=== PATIENT | female | born 1985 | race Caucasian/White ===

== ENCOUNTER 2018-12-22 20:37 | Emergency (ER) | payer OTHER ==
[2018-12-22 21:02] VITALS: BP 99/71
[2018-12-22] MEDS ORDERED: KETOROLAC TROMETHAMINE INJ/PF 30 MG/1 ML SDV IV ONE (21:27)
[2018-12-22] MEDS ORDERED: METOCLOPRAMIDE HCL INJ/PF 10 MG/2 ML SDV IV ONE (21:27)
[2018-12-22] MEDS ORDERED: DIPHENHYDRAMINE HCL 50 MG/ML VIAL IV ONE (21:27)
[2018-12-22] MEDS ORDERED: NORMAL SALINE 1000 ML 1,000 ML IV ONE (21:28)
--- NOTE | 2018-12-22 21:31 | ER Document Report ---
ED Headache - General Chief Complaint: Headache Stated Complaint: HEADACHE,NAUSEA Time Seen by Provider: 12/22/18 21:17 Mode of Arrival: Ambulatory Information source: Patient TRAVEL OUTSIDE OF THE [place] IN LAST 30 DAYS: No - HPI Patient complains to provider of: Headache Notes: Patient is here with complaints of headache. The patient has a history of headaches. She has had a headache similar to this in the past. States that the headache started gradual 3 days ago. She was seen at [facility], she was given no medications and was given a prescription for ibuprofen for which she has been taking. She states that she woke up this morning feeling better, she was actually able to go out and do some shopping, and then when she got home her headache seemed to worsen. This was not a sudden onset, thunderclap headache. It was gradual. Is been constant and getting worse. She currently rates it moderate to severe. She denies head injury. She is not on blood thinning medications. She denies any fever or neck stiffness. She denies any unilateral numbness, tingling, weakness. No blurred or loss vision. No chest pain or shortness of breath. She has had nausea, but denies any vomiting or diarrhea. She denies abdominal pain. Lights and sounds make the headache worse, nothing seems to make it better. She denies any further complaints at this time. In reviewing her records, the patient had a head CT which was normal in the last several years. - Related Data Allergies/Adverse Reactions: No Known Drug Allergies Allergy (Mild, Verified 12/28/12 11:59) Past Medical History - Social History Smoking Status: Unknown if Ever Smoked Family History: Reviewed & Not Pertinent - Past Medical History Cardiac Medical History: Denies: Hx Coronary Artery Disease, Hx Heart Attack, Hx Hypertension Pulmonary Medical History: Denies: Hx Asthma, Hx Bronchitis, Hx COPD, Hx Pneumonia Neurological Medical History: Denies: Hx Cerebrovascular Accident, Hx Seizures Musculoskeletal Medical History: Denies Hx Arthritis Past Surgical History: Reports: Hx Hysterectomy - Immunizations Hx Diphtheria, Pertussis, Tetanus Vaccination: Yes Review of Systems - Review of Systems -: Yes All other systems reviewed and negative Physical Exam - Vital signs Vitals: Temp Pulse Resp BP Pulse Ox 98.6 F 77 16 99/71 L 97 12/22/18 21:01 12/22/18 21:01 12/22/18 21:01 12/22/18 21:01 12/22/18 21:01 - Notes Notes: GENERAL: alert, cooperative, nontoxic, no distress. HEAD: normocephalic, atraumatic EYES: conjunctiva pink without discharge, no external redness or swelling. Pupils are equal, round, reactive to light. EARS: no external swelling, no external redness NOSE: atraumatic, no external swelling MOUTH/THROAT: mucous membranes moist and pink, posterior pharynx without erythema, swelling, exudate. No trismus or drooling. NECK: soft, supple, full range of motion, no meningismus. CHEST: no distress, lungs clear and equal throughout. No wheezing, rales, rhonchi. CARDIAC: regular rate and rhythm, no murmur, normal capillary refill, normal pulses. No peripheral edema noted. BACK: full range of motion, no CVA tenderness. EXTREMITIES: full range of motion of all extremities. No redness, no swelling. NEURO: alert and oriented x 3, cranial nerves II through XII are grossly intact. Upper and lower extremities are equal throughout. Normal sensation. No focal deficits, full range of motion of all extremities. normal finger to nose. PYSCH: appropriate mood, affect. Patient is cooperative. SKIN: pink, warm, dry, no rash. Course - Re-evaluation Re-evalutation: 12/22/18 23:28 Reevaluation the patient at this time shows that her headache has resolved. She states that she is feeling significantly better at this time. Vitals are stab le. Patient arrived with complaints of a gradual headache which started a few days ago and progressively got worse today. She has had headaches similar to this in the past. She is not on blood thinning medications, she had no injury, no neck stiffness, no fever. There is no sign of subarachnoid hemorrhage, meningitis or other serious cause of headache. She has a nonfocal neurological exam. She responded well to her migraine cocktail and states that she is feeling significantly better and would like to be discharged home at this time. This point the patient can be discharged home with instructions to take wswg-cno-xuvicen medications as needed. Follow-up with her primary care doctor if she requires. Return the hospital for any worsening pain, severe headache, blurred or loss vision, numbness, tingling, weakness, neck stiffness, fever, persistent vomiting, or for any further concerns. The patient's emergency department workup and current diagnosis were explained to the patient and or family. Follow-up instructions were provided. Medications if prescribed were discussed. Instructions for when to return to the emergency department including specific worrisome symptoms were discussed with the patient and/or family. - Vital Signs Vital signs: Temp Pulse Resp BP Pulse Ox 98.6 F 77 16 99/71 L 97 12/22/18 21:12/22/18 21:12/22/18 21:12/22/18 21:12/22/18 21:01 Discharge - Discharge Clinical Impression: Headache Condition: Stable Disposition: HOME, SELF-CARE Instructions: Headache ([facility]) Additional Instructions: Take [id number] medications as needed for headache. Drink caffeine for headache. Follow-up with your doctor as needed. Return the hospital for worsening pain, fever, neck stiffness, blurred or loss vision, numbness, tingling, weakness, persistent vomiting, or for any further concerns. Referrals: [facility] [Provider Group] - Follow up as needed
== END 2018-12-22 23:45 | disposition home or self-care (01) ==
LOC: ER 20:37
DX: R51 Headache (principal); R11.0 Nausea; Z90.710 Acquired absence of both cervix and uterus
CPT/HCPCS: 99283; 96374; 96375; J1200; J1885; J2765; J7030

== ENCOUNTER 2019-02-07 13:32 | Emergency (ER) | payer OTHER ==
[2019-02-07] MEDS ORDERED: ALBUTEROL SULFATE HFA (90 MCG/PUFF) 8 GM MDI (1 MDI/ER DISP) IH ONE (15:34)
--- NOTE | 2019-02-07 15:39 | ER Document Report ---
HPI - HPI Time Seen by Provider: 02/07/19 14:52 Pain Level: 3 Notes: Patient is an otherwise healthy 33-year-old female presenting with 5-day history of cough, sore throat, wheezing, congestion, headache, bilateral ear pain and gagging so much after coughing that she vomits. She states that she has been unable to hold down any food due to this. - CONSTITUTIONAL Constitutional: DENIES: Fever, Chills - NEURO Neurology: REPORTS: Headache - REPRODUCTIVE Reproductive: DENIES: : Past Medical History - General Information source: Patient - Social History Smoking Status: Never Smoker Chew tobacco use (# tins/day): No Frequency of alcohol use: None Drug Abuse: None Family History: Reviewed & Not Pertinent Patient has suicidal ideation: No Patient has homicidal ideation: No - Medical History Medical History: Negative - Past Medical History Cardiac Medical History: Denies: Hx Coronary Artery Disease, Hx Heart Attack, Hx Hypertension Pulmonary Medical History: Denies: Hx Asthma, Hx Bronchitis, Hx COPD, Hx Pneumonia Neurological Medical History: Denies: Hx Cerebrovascular Accident, Hx Seizures Renal/ Medical History: Denies: Hx Peritoneal Dialysis Musculoskeletal Medical History: Denies Hx Arthritis Past Surgical History: Reports: Hx Section - x2, Hx Cholecystectomy, Hx Hysterectomy, Hx Orthopedic Surgery - ACL to R leg - Immunizations Hx Diphtheria, Pertussis, Tetanus Vaccination: Yes Vertical Provider Document - CONSTITUTIONAL Notes: PHYSICAL EXAMINATION: GENERAL: Well-appearing, well-nourished and in no acute distress. HEAD: Atraumatic, normocephalic. EYES: Pupils equal round extraocular movements intact, conjunctiva are normal. ENT: Nares with clear rhinorrhea, bilateral TMs full, nonerythematous. Tenderness to palpation over frontal and maxillary sinuses. NECK: Normal range of motion LUNGS: No respiratory distress, lung sounds clear and equal bilaterally. Bronchospasm with deep breaths. Musculoskeletal: Normal range of motion NEUROLOGICAL: Normal speech, normal gait. PSYCH: Normal mood, normal affect. SKIN: Warm, Dry, normal turgor, no rashes or lesions noted. - INFECTION CONTROL TRAVEL OUTSIDE OF THE [place] IN LAST 30 DAYS: No COUNTRY TRAVELED TO/FROM: [facility] Course - Re-evaluation Re-evalutation: Patient's physical examination is consistent with bronchitis and sinusitis. Patient's vital signs are within normal limits, no tachycardia, hypoxia or hypotension. Patient will be safe to discharge home on outpatient oral medications. Patient encouraged to follow-up with primary care provider if not improving over the next 3 to 5 days. Patient verbalizes understanding and agreement with same. - Vital Signs Vital signs: Temp Pulse Resp BP Pulse Ox 98.1 F 89 18 106/58 L 100 02/07/19 13:49 02/07/19 13:49 02/07/19 13:49 02/07/19 13:49 02/07/19 13:49 Discharge - Discharge Clinical Impression: Bronchitis Sinusitis Qualifiers: Sinusitis location: maxillary Chronicity: acute Recurrence: non-recurrent Qualified Code(s): J01.00 - Acute maxillary sinusitis, unspecified Condition: Stable Disposition: HOME, SELF-CARE Additional Instructions: Sinusitis You have sinusitis, an infection of the sinus cavities of the face. The sinuses are air-filled chambers which open into the inside of the nose. Bacteria and pus fill a sinus, causing pain, drainage, and fever. Sinusitis is treated with antibiotics. Often, expectorants (to thin the sinus mucous) or decongestants (to reduce swelling) are prescribed as well. Healing requires seven to 10 days. Avoid chemical fumes, pollens, dusts, and smoke (especially cigarette smoke). Keep the air humidified in your bedroom and work area and take plenty of liquids by mouth. This condition can be serious if the infection spreads. If your symptoms worsen, or if you develop severe headache, high fever, stiff neck, or a rash, you must call the doctor or return for re-evaluation. Bronchitis with Bronchospasm (Wheezing) You have bronchitis with bronchospasm (wheezing). Sometimes people develop wheezing with a chest cold. This occurs either because of an underlying tendency toward asthma or because the virus itself irritates the bronchial tubes. This irritation causes cough, shortness of breath, and wheezing. Emergency treatment of bronchospasm may include adrenaline shots or bronchodilator aerosol. You may feel lightheaded and have a rapid pulse for an hour or two. Rest and get plenty of fluids. At home, we'll treat you with a bronchodilator inhaler. Corticosteroids may be required for some patients. Until you recover, avoid chemical fumes, dusts, pollens, and exercising in very cold or dry air. If you smoke, stop now! Most cases of bronchitis get better without antibiotics. We prescribe antibiotics when we believe bacteria are damaging your airways, or if there's high risk the bronchitis will worsen into pneumonia. Increase your fluid intake. A cool mist humidifier may make your lungs more comfortable. An expectorant (cough medicine that loosens phlegm) can help. Repeated episodes of bronchitis and bronchospasm may result in lung damage -- for example, chronic bronchitis, recurrent pneumonias, or emphysema. If you develop a fever, increased wheezing, chest pain, or severe shortness of breath, you should contact the doctor immediately. Prescriptions: Benzonatate [Tessalon Perles 100 mg Capsule] 100 mg PO Q8HP PRN #20 capsule PRN Reason: Doxycycline Hyclate 100 mg PO BID #10 capsule Prednisone [Deltasone 20 mg Tablet] 3 tab PO DAILY 5 Days #15 tablet Referrals: MIGUEL COPPOLA PA-C [Primary Care Provider] - Follow up as needed
[2019-02-07 15:48] VITALS: BP 113/71
== END 2019-02-07 15:51 | disposition home or self-care (01) ==
LOC: ER 13:32
DX: J40 Bronchitis, not specified as acute or chronic (principal); J01.00 Acute maxillary sinusitis, unspecified; R05 Cough; J02.9 Acute pharyngitis, unspecified; R06.2 Wheezing; R09.81 Nasal congestion; R51 Headache; H92.03 Otalgia, bilateral; R11.10 Vomiting, unspecified
CPT/HCPCS: 99283; 87070; 87880; J3490

== ENCOUNTER 2019-07-20 14:32 | Emergency (ER) | payer OTHER ==
--- NOTE | 2019-07-20 15:18 | ER Document Report ---
ED Medical Screen (RME) - General Chief Complaint: Abdominal Pain Stated Complaint: ABDOMINAL/BACK PAIN Time Seen by Provider: 07/20/19 15:15 Primary Care Provider: MIGUEL COPPOLA PA-C [Primary Care Provider] - Follow up as needed Mode of Arrival: Ambulatory Notes: 33-year-old female presented to ED for complaint of low back pain 2 days ago and now she has severe abdomen and back pain. She states it feels the same as when her gallbladder ruptured. She states she has had nausea but no vomiting. She states she does not smoke drink or do any drugs. She states she has had diarrhea for the last 2 to 3 days. She states that her last formed stool was about a week ago. I have greeted and performed a rapid initial assessment of this patient. A comprehensive ED assessment and evaluation of the patient, analysis of test results and completion of medical decision making process will be conducted by an additional ED providers. I have greeted and performed a rapid initial assessment of this patient. A comprehensive ED assessment and evaluation of the patient, analysis of test results and completion of medical decision making process will be conducted by an additional ED providers. TRAVEL OUTSIDE OF THE [place] IN LAST 30 DAYS: No COUNTRY TRAVELED TO/FROM: [facility] - Related Data Allergies/Adverse Reactions: No Known Drug Allergies Allergy (Mild, Verified 02/07/19 13:44) Past Medical History - Past Medical History Cardiac Medical History: Denies: Hx Coronary Artery Disease, Hx Heart Attack, Hx Hypertension Pulmonary Medical History: Denies: Hx Asthma, Hx Bronchitis, Hx COPD, Hx Pneumonia Neurological Medical History: Denies: Hx Cerebrovascular Accident, Hx Seizures Renal/ Medical History: Denies: Hx Peritoneal Dialysis Musculoskeltal Medical History: Denies Hx Arthritis Past Surgical History: Reports: Hx Section - x2, Hx Cholecystectomy, Hx Hysterectomy, Hx Orthopedic Surgery - ACL to R leg - Immunizations Hx Diphtheria, Pertussis, Tetanus Vaccination: Yes Physical Exam - Vital signs Vitals: Temp Pulse Resp BP Pulse Ox 99 F 116 H 16 132/84 H 98 07/20/19 15:10 07/20/19 15:10 07/20/19 15:10 07/20/19 15:10 07/20/19 15:10 Course - Vital Signs Vital signs: Temp Pulse Resp BP Pulse Ox 99 F 116 H 16 132/84 H 98 07/20/19 15:10 07/20/19 15:10 07/20/19 15:10 07/20/19 15:10 07/20/19 15:10 Doctor's Discharge - Discharge Referrals: MIGUEL COPPOLA PA-C [Primary Care Provider] - Follow up as needed
[2019-07-20 15:52] LABS: ABSOLUTE BASOPHILS # (AUTO) 0.1 10^3/uL (0.0-0.2); ABSOLUTE LYMPHOCYTES (AUTO) 1.7 10^3/uL (0.5-4.7); ABSOLUTE MONOCYTES (AUTO) 0.7 10^3/uL (0.1-1.4); ABSOLUTE NEUT (AUTO) 12.3 10^3/uL (1.7-8.2); BASOPHILS % (AUTO) 0.7 % (0-2); EOSINOPHILS % (AUTO) 0.1 % (0-6); HEMOGLOBIN 13.5 g/dL (12.0-15.5); LYMPHOCYTES % (AUTO) 11.3 % (13-45); MEAN CORPUSCULAR HEMOGLOBIN 29.4 pg (27.0-33.4); MEAN CORPUSCULAR HGB CONC 34.7 g/dL (32.0-36.0); MEAN CORPUSCULAR VOLUME 85 fl (80-97); MONOCYTES % (AUTO) 4.9 % (3-13); PLATELET COUNT 265 10^3/uL (150-450); RED BLOOD COUNT 4.61 10^6/uL (3.72-5.28); RED CELL DISTRIBUTION WIDTH 13.2 % (11.5-14.0); TOTAL CELLS COUNTED % (AUTO) 100 %; WHITE BLOOD COUNT 14.8 10^3/uL (4.0-10.5)
[2019-07-20 15:54] LABS: APPEARANCE,URINE SLIGHTLY-CLOUDY; BILIRUBIN,URINE NEGATIVE (NEGATIVE); COLOR,URINE YELLOW; GLUCOSE, URINE NEGATIVE (NEGATIVE); KETONES,URINE NEGATIVE (NEGATIVE); PROTEIN,URINE NEGATIVE (NEGATIVE); URINE SPECIFIC GRAVITY 1.011; UROBILINOGEN,URINE NEGATIVE mg/dL (<2.0)
--- NOTE | 2019-07-20 16:07 | RADIOLOGY REPORT (SQ) ---
EXAM DESCRIPTION: ACUTE ABDOMEN SERIES COMPLETED DATE/TIME: 07/20/2019 3:48 pm REASON FOR STUDY: Watery stools and severe abdomen back pain COMPARISON: None. NUMBER OF VIEWS: Three views. TECHNIQUE: Frontal chest, supine abdomen and upright/decubitus abdomen radiographic images acquired. LIMITATIONS: None. FINDINGS: CHEST: Lungs clear of infiltrates. FREE AIR: None. No abnormal gas collections. BOWEL GAS PATTERN: Nonobstructive pattern. Moderate stool in the transverse colon. CALCIFICATIONS: No suspicious calcifications. HARDWARE: None in the abdomen. SOFT TISSUES: No gross mass or suggestion of organomegaly. BONES: No acute fracture. No worrisome bone lesions. OTHER: No other significant finding. IMPRESSION: NO RADIOGRAPHIC EVIDENCE FOR ACUTE ABDOMINAL DISEASE. TECHNICAL DOCUMENTATION: JOB ID: [id number] [employer]- All Rights Reserved Reading location - IP/workstation name: [email or web address]
[2019-07-20 16:16] LABS: ALBUMIN 4.6 g/dL (3.5-5.0); ALKALINE PHOSPHATASE 105 U/L (38-126); ANION GAP 13 (5-19); ASPARTATE AMINO TRANSFERASE 33 U/L (14-36); BILIRUBIN,DIRECT 0.2 mg/dL (0.0-0.4); BILIRUBIN,TOTAL 0.6 mg/dL (0.2-1.3); BLOOD UREA NITROGEN 8 mg/dL (7-20); CARBON DIOXIDE 23 mmol/L (22-30); CHLORIDE 105 mmol/L (98-107); GLUCOSE 95 mg/dL (75-110); POTASSIUM 3.9 mmol/L (3.6-5.0); TOTAL PROTEIN 7.9 g/dL (6.3-8.2)
[2019-07-20] MEDS ORDERED: ACETAMINOPHEN 325 MG TABLET PO ONE (18:07)
[2019-07-20] MEDS ORDERED: ONDANSETRON HCL INJ/PF 4 MG/2 ML SDV IV ONE (18:07)
[2019-07-20] MEDS ORDERED: NORMAL SALINE 1000 ML 1,000 ML IV ONE (18:08)
[2019-07-20] MEDS ORDERED: MORPHINE SULFATE 10 MG/ML INJ IV ONE (18:09)
--- NOTE | 2019-07-20 19:38 | ER Document Report ---
ED GI/ - General Chief Complaint: Abdominal Pain Stated Complaint: ABDOMINAL/BACK PAIN Time Seen by Provider: 07/20/19 15:15 Primary Care Provider: MIGUEL COPPOLA PA-C [Primary Care Provider] - Follow up as needed Mode of Arrival: Ambulatory Information source: Patient Notes: Ms. Hogan is a 33 yo F w/ PMH of both thyroidism presenting to the emergency department for abdominal pain. Patient states that it initially began as her old lower back pain 1 to 2 days ago and just today it turned into diffuse abdominal pain. She endorses nausea without any episodes of vomiting. She denies any chest pain or shortness of breath. She endorses subjective fevers and chills. She states she has had multiple episodes of diarrhea however that is not uncommon for her. She has had previous surgeries of 2 sections as well as one laparoscopic hysterectomy. Patient denies any previous history of colonoscopy. She denies any known ill contacts or recent travel. She has had decreased p.o. intake over the past 2 days. She denies any increase in urinary frequency or dysuria. TRAVEL OUTSIDE OF THE [place] IN LAST 30 DAYS: No COUNTRY TRAVELED TO/FROM: [facility] - Related Data Allergies/Adverse Reactions: No Known Drug Allergies Allergy (Mild, Verified 07/20/19 15:16) Home Medications: lexapro. synthroid Past Medical History - General Information source: Patient - Social History Smoking Status: Never Smoker Chew tobacco use (# tins/day): No Frequency of alcohol use: None Drug Abuse: None Family History: Reviewed & Not Pertinent Patient has suicidal ideation: No Patient has homicidal ideation: No - Past Medical History Cardiac Medical History: Denies: Hx Coronary Artery Disease, Hx Heart Attack, Hx Hypertension Pulmonary Medical History: Denies: Hx Asthma, Hx Bronchitis, Hx COPD, Hx Pneumonia Neurological Medical History: Denies: Hx Cerebrovascular Accident, Hx Seizures Renal/ Medical History: Denies: Hx Peritoneal Dialysis Musculoskeletal Medical History: Denies Hx Arthritis Past Surgical History: Reports: Hx Section - x2, Hx Cholecystectomy, Hx Hysterectomy, Hx Orthopedic Surgery - ACL to R leg - Immunizations Hx Diphtheria, Pertussis, Tetanus Vaccination: Yes Review of Systems - Review of Systems Constitutional: See HPI EENT: No symptoms reported Cardiovascular: No symptoms reported Respiratory: No symptoms reported Gastrointestinal: See HPI, Abdominal pain, Diarrhea, Nausea, Poor appetite Genitourinary: No symptoms reported Female Genitourinary: No symptoms reported Musculoskeletal: No symptoms reported Skin: No symptoms reported Hematologic/Lymphatic: No symptoms reported Neurological/Psychological: No symptoms reported Physical Exam - Vital signs Vitals: Temp Pulse Resp BP Pulse Ox 99 F 116 H 16 132/84 H 98 07/20/19 15:10 07/20/19 15:10 07/20/19 15:10 07/20/19 15:10 07/20/19 15:10 Interpretation: Normal, Tachycardic, Other - Low-grade temp orally - General General appearance: Alert, Other - Ill-appearing but nontoxic - HEENT Head: Normocephalic, Atraumatic Eyes: Normal Pupils: PERRL - Respiratory Respiratory status: No respiratory distress Chest status: Nontender Breath sounds: Normal Chest palpation: Normal - Cardiovascular Rhythm: Regular Heart sounds: Normal auscultation Murmur: No - Abdominal Inspection: Normal Distension: No distension Bowel sounds: Normal Tenderness: Tender - Diffuse, Guarding. No: Rebound Organomegaly: No organomegaly - Back Back: Normal, Tender. No: Deformity/step-off, CVA tenderness, Vertebra tenderness - Bilateral lumbar paraspinous tenderness to palpation. - Extremities General upper extremity: Normal inspection, Nontender, Normal color, Normal ROM, Normal temperature General lower extremity: Normal inspection, Nontender, Normal color, Normal ROM, Normal temperature, Normal weight bearing. No: Darin's sign - Neurological Neuro grossly intact: Yes Cognition: Normal Orientation: AAOx4 Heidrick Coma Scale Eye Opening: Spontaneous Heidrick Coma Scale Verbal: Oriented Mynor Coma Scale Motor: Obeys Commands Mynor Coma Scale Total: 15 Speech: Normal Motor strength normal: LUE, RUE, LLE, RLE Sensory: Normal - Psychological Associated symptoms: Normal affect, Normal mood - Skin Skin Temperature: Warm Skin Moisture: Dry Skin Color: Normal Course - Re-evaluation Re-evalutation: Patient is ill-appearing and uncomfortable however nontoxic. Initial vitals notable for tachycardia. Likely because the patient has a low-grade temp. Patient ordered for Tylenol as well as IV fluids, Zofran and morphine for pain control. Differential diagnosis includes diverticulitis, SBO (less likely), cholecystitis, pancreatitis. 07/20/19 19:44 Labs notable for leukocytosis left shift. CMP and lipase within normal limits. UA of negative for infection. There was a abdominal series ordered from triage which is otherwise unremarkable. However given the guarding that the patient was having clinical examination, CT abdomen pelvis was obtained. 07/20/19 21:[address] is otherwise unremarkable. Patient felt improved after Zofran and morphine. Will administer 30 mg of Toradol prior to discharge. Likely muscular strain of the back which causes referred pain to the anterior abdomen. Abdomen is improved without any guarding at this point in time. Patient given return precautions. - Vital Signs Vital signs: Temp Pulse Resp BP Pulse Ox 99 F 116 H 16 132/84 H 98 07/20/19 15:10 07/20/19 15:10 07/20/19 15:10 07/20/19 15:10 07/20/19 15:10 - Laboratory Result Diagrams: 07/20/19 15:27 07/20/19 15:27 Laboratory results interpreted by me: 07/20/19 07/20/19 15:27 15:27 WBC 14.8 H Lymph % (Auto) 11.3 L Absolute Neuts (auto) 12.3 H Seg Neutrophils % 83.0 H Urine Blood MODERATE H Leukocyte Esterase Rfl TRACE H Discharge - Discharge Clinical Impression: Low back strain Qualifiers: Encounter type: initial encounter Qualified Code(s): S39.012A - Strain of muscle, fascia and tendon of lower back, initial encounter Back pain Qualifiers: Back pain location: low back pain Chronicity: acute Back pain laterality: bilateral Sciatica presence: without sciatica Qualified Code(s): M54.5 - Low back pain Abdominal pain Qualifiers: Abdominal location: generalized Qualified Code(s): R10.84 - Generalized abdomin al pain Condition: Good Disposition: HOME, SELF-CARE Instructions: Abdominal Pain ([facility]), Stretching Exercises for the Back ([facility]), Low Back Pain ([facility]) Additional Instructions: Recommend that you apply at least 30 minutes of heat 3-4 times a day in addition to 800 mg of ibuprofen every 8 hours. I would also recommend that you try a bland diet for the next 2 to 3 days to help with the abdominal pain. Follow-up with your primary care doctor as needed. If your pain worsens, you are unable to keep down food or drink, develop a fever, or any other concerning symptoms, return to the ED for further evaluation. Referrals: MIGUEL COPPOLA PA-C [Primary Care Provider] - Follow up as needed
--- NOTE | 2019-07-20 19:45 | RADIOLOGY REPORT (SQ) ---
EXAM DESCRIPTION: CT ABD/PELVIS WITH IV ONLY COMPLETED DATE/TIME: 07/20/2019 7:07 pm REASON FOR STUDY: abd pain, guarding, low grade fever COMPARISON: None. TECHNIQUE: CT scan of the abdomen and pelvis performed using helical scanning technique with dynamic intravenous contrast injection. No oral contrast. Images reviewed with lung, soft tissue, and bone windows. Reconstructed coronal and sagittal MPR images reviewed. Delayed images for evaluation of the urinary system also acquired. All images stored on PACS. All CT scanners at this facility use dose modulation, iterative reconstruction, and/or weight based d osing when appropriate to reduce radiation dose to as low as reasonably achievable (ALARA). [facility]: Dose Right [facility]: CareDose [facility]: Dose Right [facility]: Teradose 4D [facility]: [employer] CONTRAST TYPE AND DOSE: contrast/concentration: Isovue 350.00 mg/ml; Total Contrast Delivered: 100.0 ml; Total Saline Delivered: 72.0 ml 100 mL Isovue 350- low osmolar. RENAL FUNCTION: BUN 8, creatinine 0.77 RADIATION DOSE: CT Rad equipment meets quality standard of care and radiation dose reduction techniq ues were employed. CTDIvol: 15.7 - 19.8 mGy. DLP: 2105 mGy-cm.. LIMITATIONS: None. FINDINGS: LOWER CHEST: No significant findings. No nodules or infiltrates. LIVER: Normal size. No masses. No dilated ducts. SPLEEN: Normal size. No focal lesions. PANCREAS: No masses. No significant calcifications. No adjacent inflammation or peripancreatic fluid collections. Pancreatic duct not dilated. GALLBLADDER: No identified stones by CT criteria. No inflammatory changes to suggest cholecystitis. ADRENAL GLANDS: No significant masses or asymmetry. RIGHT KIDNEY AND URETER: No solid masses. No significant calcifications. No hydronephrosis or hyd roureter. LEFT KIDNEY AND URETER: No solid masses. No significant calcifications. No hydronephrosis or hydr oureter. AORTA AND VESSELS: No aneurysm. No dissection. Renal arteries, SMA, celiac without stenosis. RETROPERITONEUM: No retroperitoneal adenopathy, hemorrhage or masses. BOWEL AND PERITONEAL CAVITY: No masses or inflammatory changes. No free fluid or peritoneal masses. APPENDIX: Normal. PELVIS: Hysterectomy. No mass. No free fluid. Normal bladder. ABDOMINAL WALL: No masses. No hernias. BONES: No significant or acute findings. OTHER: No other significant finding. IMPRESSION: No acute intra-abdominal findings. TECHNICAL DOCUMENTATION: JOB ID: [id number] Quality ID # [id number]: Final reports with documentation of one or more dose reduction techniques (e.g., Au tomated exposure control, adjustment of the mA and/or kV according to patient size, use of iterative reconstruction technique) 2010 [employer]- All Rights Reserved Reading location - IP/workstation name: [email or web address]
[2019-07-20] MEDS ORDERED: KETOROLAC TROMETHAMINE 60 MG/2 ML SDV IV ONE (20:56)
[2019-07-20 21:13] VITALS: BP 134/77
== END 2019-07-20 21:23 | disposition home or self-care (01) ==
LOC: ER 14:32
DX: S39.012A Strain of muscle, fascia and tendon of lower back, initial encounter (principal); R10.84 Generalized abdominal pain; R19.7 Diarrhea, unspecified; R11.0 Nausea; X58.XXXA Exposure to other specified factors, initial encounter; Z90.49 Acquired absence of other specified parts of digestive tract; Z90.710 Acquired absence of both cervix and uterus
CPT/HCPCS: 36415; 87086; 83690; 85025; 87088; 80053; 81001; 74022; 74177; J1885; J2270; J2405; J7030; 87186

== ENCOUNTER → 2019-07-26 | Outpatient (CLI) | payer OTHER ==
--- NOTE | 2019-07-26 08:14 | WOMENS IMAGING REPORT ---
EXAM DESCRIPTION: RETROPERITONEAL U/S COMPLETED DATE/TIME: 07/26/2019 8:01 am REASON FOR STUDY: R63.5 ABNORMAL WEIGHT GAIN R63.5 ABNORMAL WEIGHT GAIN COMPARISON: None. TECHNIQUE: Dynamic and static grayscale images acquired of the kidneys and bladder and recorded on P ACS. Additional selected color Doppler and spectral images recorded. LIMITATIONS: None. FINDINGS: RIGHT KIDNEY: The right kidney measures 12.3 cm in length. Normal echogenicity. No so lid or suspicious masses. No hydronephrosis. No calcifications. LEFT KIDNEY: The left kidney measures 12.3 cm in length. Normal echogenicity. No solid or suspic ious masses. No hydronephrosis. No calcifications. BLADDER: No masses. OTHER FINDINGS: No other significant finding. IMPRESSION: NORMAL RENAL AND BLADDER ULTRASOUND. TECHNICAL DOCUMENTATION: JOB ID: [id number] [employer]- All Rights Reserved Reading location - IP/workstation name: [email or web address]
== END ==
LOC: WI 07:38
PROVIDERS: ATTEND Physician Assistant
DX: R63.5 Abnormal weight gain (principal)
CPT/HCPCS: 76770

== ENCOUNTER → 2020-10-09 | Outpatient (CLI) | payer OTHER ==
[~2020-10-09] MED LIST: COVID-19 VACCINE (PFIZER)/PF 30 MCG/0.3 ML VIAL IM ONE; EPINEPHRINE INJ/PF 1 MG/1 ML AMPULE IM PRN
== END ==
LOC: EMPHEALTH 15:58
PROVIDERS: ATTEND Internal Medicine
DX: Z23 Encounter for immunization (principal)
CPT/HCPCS: 91300